=== PATIENT | female | born 1950 | race Caucasian/White ===

== ENCOUNTER 2019-09-27 09:00 | Inpatient (IN) | payer MEDICARE ==
--- NOTE | 2019-09-21 14:44 | HP ---
Amended report to enter cosigning physician on report. HISTORY AND PHYSICAL: DATE OF ADMISSION/SURGERY: 09/27/19 DATE OF OFFICE VISIT: 09/19/19 SURGEON: Dolores Burns MD* PROCEDURE: Right total hip arthroplasty. CHIEF COMPLAINT: Right hip pain. HISTORY OF PRESENT ILLNESS: Ms. Puente is a 69-year-old female with end-stage osteoarthritis of the right hip. She has failed conservative treatment and elected to proceed with a right total hip arthroplasty. PAST MEDICAL HISTORY: Hypertension. PAST SURGICAL HISTORY: Removal of hemangioma from her tongue, wisdom teeth extraction. CURRENT MEDICATIONS: 1. Triamterene/hydrochlorothiazide 37.5/25 mg half a tab daily. 2. Calcium with vitamin D. 3. Famotidine 20 mg a day. ALLERGIES: To PENICILLIN. FAMILY HISTORY: Coronary artery disease, stroke, Alzheimer's, and cancer. SOCIAL HISTORY: She is a 69-year-old female. She lives with her . She does not smoke or use drugs. Uses occasional alcohol. REVIEW OF SYSTEMS: A complete 14-point review of systems was reviewed with the patient. It was all negative or noncontributory. She denies history of DVT, PE , hepatitis, HIV, or anesthesia problems. PHYSICAL EXAMINATION GENERAL: She is well developed, well nourished, in no acute distress. VITAL SIGNS: She stands 63-1/2 inches tall, weighs 160 pounds. Her blood pressure is 116/62, her heart rate is 100. HEENT: Normocephalic, atraumatic. NECK: Supple. No palpable lymph nodes. PULMONARY: The lungs are clear to auscultation bilaterally. CARDIO: Regular rate and rhythm. Strong S1, S2. ABDOMEN: Soft, nontender, nondistended. NEUROLOGICAL: She is alert and oriented x3. MUSCULOSKELETAL: Right lower extremity: The skin is intact. There are no open wounds or abrasions. She walks with an antalgic-type gait. She has decreased internal and external rotation of the right hip. She is able to dorsiflex and plantarflex and has a 2+ dorsalis pedis pulse. ASSESSMENT AND PLAN: Ms. Puente is a 69-year-old female with end-stage osteoarthritis of the right hip. She has failed conservative treatment and elected to proceed with a right total hip arthroplasty. The surgery is scheduled for 09/27/[address] Burns discussed the risks and benefits of the surgery at today's visit and all of her questions were answered. She will follow up with Dr. Burns 2 weeks after the surgery. KIERA JARA [id number]/[facility] #: [id number] TELLY
[~2019-09-27 09:00] MED LIST: Acetaminophen TAB* 325 MG PO ONE; Buffered Lidocaine 1% SYRIN* 1 ML/SYRINGE INTRADERM ONE; Gabapentin CAP(*) 300 MG PO ONE; Lactated Ringers 1000 ML Bag* 1,000 ML IV SCH; Tranexamic Acid 1,000 MG in NS 0.9% 50 ML* (outpatient use) IV SCH; celeCOXIB CAP* 200 MG PO ONE
--- OUTSIDE RECORDS SUMMARY | 2019-09-27 13:47 | XMS REPORT | Continuity of Care Document ---
:1950 External Reference #:[id number] Author Name Dolores Burns M.D. (transmitted by agent of provider Polly Martinez) Address [address] [place] [address] Care Team Providers Name Role Phone Shayla Holt MD - Internal Care Team Information [facility] Alejandra Garcia MD - Internal Care Team Information [employer] [phone] Medicine Michael Gaitan MD - Orthopaedic Care Team Information [employer] [phone] Surgery Dolores Burns MD - Adult Care Team Information [employer] [phone] Reconstructive Orthopaedic Surgery Problems Active Problems Provider Date Localized, primary osteoarthritis of the pelvic Dolores Burns M.D. Onset: 04/2019 region and thigh Social History Type Date Description Comments Sex Unknown Tobacco Use Start: Unknown End: Former Cigarette Smoker cut back in 1977, Unknown quit 1999, smoked on and off ETOH Use Drinks 3 Alcoholic Beverages Per Week Tobacco Use Start: Unknown End: Patient is a former Unknown smoker Smoking Status Reviewed: 08/15/19 Patient is a former smoker Exercise Exercises regularly Type/Frequency Allergies, Adverse Reactions, Alerts Active Allergies Reaction Severity Comments Date Penicillins hives Moderate 05/22/2010 Medications Active Medications SIG Qnty Indications Ordering Provider Date Meloxicam take 1 tab by 14tabs M25.551 Shayla Holt, 01/26/2019 15mg Tablets mouth with food M.D. once a day Triamterene/Hydrochlo Take 1/2 Tablet 90tabs I10 Shayla Holt, 2015 rothiazide By Mouth Every M.D. 37.5-25mg Day Tablets Calcium + D 1 po bid Shayla Holt, 03/21/2011 M.DShonda [id number] Tablets Famotidine 1 by mouth daily Unknown 20mg Tablets Medications Administered in Office Medication SIG Qnty Indications Ordering Provider Date Depomedrol 40MG Dolores Burns M.D. 01/26/2019 Injection Immunizations CPT Code Status Date Vaccine Reaction Lot # [id number] Given 05/31/2019 Influenza Virus Vaccine, Quadrivalent, Split, Preservative Free 18355 Given 05/19/2018 Fluzone High Dose 87080 Given 05/19/2018 Fluzone High Dose 49028 Given 05/27/2017 Influenza Virus Vaccine, [id number] Quadrivalent, Split, Preservative Free 56935 Given 04/03/2016 Pneumonia Vaccine No allergies noted - no [id number] immediate side effects noted - patient tolerated well 37688 Given 03/30/2015 Pneumococcal Conjugate [id number] Vaccine 13 Valent For Intramuscular Use 80522 Given 05/20/2012 Zoster (Zostavax) 08752 Given 05/20/2012 Zoster (Zostavax) [id number] 04954 Given 03/25/2012 Tdap - [id number] Tetanus/Diptheria/Acellular Pertussis Vital Signs Date Vital Result Comment 08/15/2019 1:33pm Height 63.5 inches 5'3.50" Weight 161.00 lb Heart Rate 86 /min BP Systolic 118 mmHg BP Diastolic 66 mmHg Body Temperature 95.9 F Pain Level 4 BMI (Body Mass Index) 28.1 kg/m2 07/05/2019 1:19pm Height 63.5 inches 5'3.50" Weight 159.50 lb Heart Rate 65 /min BP Systolic 124 mmHg left arm BP Diastolic 78 mmHg left arm Body Temperature 97.7 F O2 % BldC Oximetry 99 % BMI (Body Mass Index) 27.8 kg/m2 Results Test Acquired Date Facility Test Result H/L Range Note Lipid Profile 06/29/2019 [facility] Triglycerides 54 mg/dL 1 (Trig/Chol/HDL) [address] [place] [address] [phone] Cholesterol 247 mg/dL 2 HDL Cholesterol 88.0 mg/dL 3 LDL Cholesterol 148 mg/dL 4 Comp Metabolic 06/29/2019 [facility] Sodium 140 mmol/L Normal 135-[address] [place], [place] [id number] [phone] Potassium 4.0 mmol/L Normal 3.5-5.0 Chloride 103 mmol/L Normal 101-111 Co2 Carbon Dioxide 30 mmol/L Normal 22-32 Anion Gap 7 mmol/L Normal 2-11 Glucose 88 mg/dL Normal 70-100 Blood Urea Nitrogen 13 mg/dL Normal 6-24 Creatinine 0.80 mg/dL Normal 0.51-0.95 BUN/Creatinine Ratio 16.3 Normal 8-20 Calcium 9.0 mg/dL Normal 8.6-10.3 Total Protein 6.6 g/dL Normal 6.4-8.9 Albumin 4.1 g/dL Normal 3.2-5.2 Globulin 2.5 g/dL Normal 2-4 Albumin/Globulin Ratio 1.6 Normal 1-3 Total Bilirubin 0.60 mg/dL Normal 0.2-1.0 Alkaline Phosphatase 61 U/L Normal 34-104 Alt 18 U/L Normal 7-52 Ast 20 U/L Normal 13-39 Egfr Non- 71.1 >60 Egfr 86.1 >60 5 1 Desirable: <150 Borderline High: 150-199 High: 200-499 Very High: >500 2 Desirable: <200 Borderline High: 200-239 High: >239 3 Low: <40 Desirable: 40-60 High: >60 4 Desirable: <100 Near Optimal: 100-129 Borderline High: 130-159 High: 160-189 Very High: >189 5 Because ethnic data is not always readily available, this report includes an eGFR for both -Americans and non- Americans. The National Kidney Disease Education Program (NKDEP) does not endorse the use of the MDRD equation for patients that are not between the ages of 18 and 70, are , have extremes of body size, muscle mass, or nutritional status, or are non- or non-. According to the National Kidney Foundation, irrespective of diagnosis, the stage of the disease is based on the level of kidney function: Stage Description GFR(mL/min/1.73 m(2)) 1 Kidney damage with normal or decreased GFR 90 2 Kidney damage with mild decrease in GFR 60-89 3 Moderate decrease in GFR 30-59 4 Severe decrease in GFR 15-29 5 Kidney failure <15 (or dialysis) Procedures Date Code Description Status 08/05/2019 [id number] Mammogram Completed 08/04/2018 [id number] Mammogram Completed 07/21/2017 [id number] Bone Mineral Density Test Completed 07/21/2017 [id number] Mammogram Completed 06/19/2016 [id number] Colonoscopy Completed 04/23/2016 [id number] Mammogram Completed 04/23/2015 [id number] Bone Mineral Density Test Completed 04/23/2015 [id number] Mammogram Completed 04/12/2014 [id number] Mammogram Completed 04/05/2013 [id number] Mammogram Completed 04/05/2013 [id number] Bone Mineral Density Test Completed 03/30/2012 [id number] Mammogram Completed 02/18/2011 [id number] Colonoscopy Completed 09/11/2010 [id number] Mammogram Completed 03/04/2010 [id number] Mammogram Completed 08/16/2009 [id number] Mammogram Completed 08/16/2009 [id number] Bone Mineral Density Test Completed 02/10/2006 [id number] Colonoscopy Completed 12/26/2005 [id number] Mammogram Completed Medical Devices Description No Information Available Encounters Description No Information Available Assessments Date Code Description Provider 08/15/2019 M25.551 Pain in right hip Dolores Burns M.D. 08/15/2019 M16.11 Unilateral primary osteoarthritis, right Dolores Burns M.D. hip 07/05/2019 Z00.00 Encounter for general adult medical Shayla Holt M.D. examination without abnormal findings 07/05/2019 I10 Essential (primary) hypertension Shayla Holt M.D. 07/05/2019 Z12.31 Encounter for screening mammogram for Shayla Holt M.D. malignant neoplasm of breast 07/05/2019 M16.11 Unilateral primary osteoarthritis, right Shayla Holt M.D. hip Plan of Treatment Future Appointment(s):01/06/2020 1:00 pm - Shayla Holt M.D. at [facility] Internal Medicine - [facility]08/15/2019 - Dolores Burns M.D.M25.551 Pain in right hipFollow up:Follow up: 7-10 days before rqvddsvN79.11 Unilateral primary osteoarthritis, right hip Functional Status Description No Information Available Mental Status Description No Information Available Referrals Description No Information Available
--- OUTSIDE RECORDS SUMMARY | 2019-09-27 13:47 | XMS REPORT | Continuity of Care Document ---
:1950 External Reference #:[id number] Author Name Dolores Burns M.D. (transmitted by agent of provider Bella Zuniga) Address [address] [place] [address] Care Team Providers Name Role Phone Shayla Holt MD - Internal Care Team Information [facility] Alejandra Garcia MD - Internal Care Team Information [facility] Michael Gaitan MD - Orthopaedic Care Team Information [facility] Surgery Dolores Burns MD - Adult Care Team Information [facility] [phone] Reconstructive Orthopaedic Surgery Problems Active Problems Provider [...] a former Unknown smoker Smoking Status Reviewed: 09/19/19 Patient is a former smoker Exercise Exercises [...] Calcium + D 1 po bid Shayla Cotton, 03/21/2011 M.DShonda [id number] Tablets Famotidine 1 by mouth daily Unknown 20mg Tablets Medications Administered in Office Medication SIG Qnty Indications Ordering Provider Date Depomedrol 40MG Dolores Burns M.D. 01/26/2019 Injection Immunizations CPT Code Status Date Vaccine Reaction Lot # [id number] Given 05/31/2019 Influenza Virus Vaccine, Quadrivalent, Split, Preservative Free 42496 Given 05/19/2018 Fluzone High Dose 30042 Given 05/19/2018 Fluzone High Dose 25597 Given 05/27/2017 Influenza Virus Vaccine, [id number] Quadrivalent, Split, Preservative Free 74084 Given 04/03/2016 Pneumonia Vaccine No allergies noted - no [id number] immediate side effects noted - patient tolerated well 73543 Given 03/30/2015 Pneumococcal Conjugate [id number] Vaccine 13 Valent For Intramuscular Use 46166 Given 05/20/2012 Zoster (Zostavax) 80377 Given 05/20/2012 Zoster (Zostavax) [id number] 88053 Given 03/25/2012 Tdap - [id number] Tetanus/Diptheria/Acellular Pertussis Vital Signs Date Vital Result Comment 09/19/2019 1:02pm Height 63.5 inches 5'3.50" Weight 160.00 lb Heart Rate 100 /min BP Systolic 116 mmHg BP Diastolic 62 mmHg Body Temperature 97.0 F Pain Level 5 BMI (Body Mass Index) 27.9 kg/m2 09/02/2019 3:49pm Height 63.5 inches 5'3.50" Weight 160.00 lb Heart Rate 66 /min BP Systolic 101 mmHg BP Diastolic 73 mmHg O2 % BldC Oximetry 98 % BMI (Body Mass Index) 27.9 kg/m2 Results Test Acquired Date Facility Test Result H/L Range Note Lipid Profile 06/29/2019 [facility] Triglycerides 54 mg/dL 1 (Trig/Chol/HDL) [address] [place], [place] [id number] [phone] Cholesterol 247 mg/dL 2 HDL Cholesterol 88.0 mg/dL 3 LDL Cholesterol 148 mg/dL 4 Comp Metabolic 06/29/2019 [facility] Sodium 140 mmol/L Normal 135-[address] [place] [address] [phone] Potassium 4.0 mmol/L Normal 3.5-5.0 Chloride 103 [...] (or dialysis) Procedures Date Code Description Status 09/02/2019 63881 EKG Tracing & Interpretation Completed 08/05/2019 [id number] Mammogram Completed 08/04/2018 [id number] Mammogram Completed 07/21/2017 [id number] Bone Mineral Density Test Completed 07/21/2017 [id number] Mammogram Completed 06/19/2016 [id number] Colonoscopy Completed 04/23/2016 [id number] Mammogram Completed 04/23/2015 [id number] Bone Mineral Density Test Completed 04/23/2015 [id number] Mammogram Completed 04/12/2014 [id number] Mammogram Completed 04/05/2013 [id number] Mammogram Completed 04/05/2013 [id number] Bone Mineral Density Test Completed 03/30/2012 [id number] Mammogram Completed 02/18/2011 [id number] Colonoscopy Completed 09/11/2010 [id number] Mammogram Completed 03/04/2010 [id number] Mammogram Completed 08/16/2009 [id number] Mammogram Completed 08/16/2009 [id number] Bone Mineral Density Test Completed 02/10/2006 [id number] Colonoscopy Completed 12/26/2005 [id number] Mammogram Completed Medical Devices Description No Information Available Encounters Type Date Location Provider Dx Diagnosis Office Visit 09/02/2019 [employer] [facility] Internal Shayla Z01.818 Encounter for other 3:40p Medicine - Lex[place] Holt M.D. preprocedural examination I10 Essential (primary) hypertension M25.551 Pain in right hip Office Visit 08/15/2019 1:45p [facility] Dolores Burns, M25.551 Pain in right at [place] M.D. hip M16.11 Unilateral primary osteoarthritis, right hip Assessments Date Code Description Provider 09/19/2019 M25.551 Pain in right hip Dolores Burns M.D. 09/19/2019 M16.11 Unilateral primary osteoarthritis, right Dolores Burns M.D. hip 09/02/2019 Z01.818 Encounter for other preprocedural Shayla Holt M.D. examination 09/02/2019 I10 Essential (primary) hypertension Shayla Holt M.D. 09/02/2019 M25.551 Pain in right hip Shayla Holt M.D. 08/15/2019 M25.551 Pain in right hip Dolores [...] Holt M.D. hip Plan of Treatment Future Appointment(s):10/11/2019 8:00 am - KIERA Das at [facility] at Gozcaz4809/27/2019 10:30 am - Erwin Bustos PA-C at [facility] at Kpmzwd7409/27/2019 10:30 am - KIERA Das at [facility] at Bqsjcz9209/27/2019 10:30 am - Dolores Burns M.D. at [facility] at Ukrwff4401/06/2020 1:00 pm - Shayla Holt M.D. at [facility] Internal Medicine - [facility]09/19/2019 - Dolores Burns M.D.M25.551 Pain in right hipFollow up:Follow up: 2 weeks after ddyjhjoD74.11 Unilateral primary osteoarthritis, right hip Functional Status Description No Information Available Mental Status Description No Information Available Referrals Description No Information Available
--- OUTSIDE RECORDS SUMMARY | 2019-09-27 13:47 | XMS REPORT | Continuity of Care Document ---
:1950 External Reference #:[id number] Author Name Shayla Holt M.D. (transmitted by agent of provider Luli Alvarado ) Address [address], [place] [address] Care Team Providers Name Role Phone Shayla Holt MD - Internal Care Team Information [facility] Alejandra Garcia MD - Internal Care Team Information [facility] Michael Gaitan MD - Orthopaedic Care Team Information [employer] [phone] Surgery Dolores Burns MD - Adult Care Team Information [employer] [phone] Reconstructive Orthopaedic Surgery Problems Active Problems Provider [...] a former Unknown smoker Smoking Status Reviewed: 09/02/19 Patient is a former smoker Exercise Exercises [...] 1 po bid Shayla Holt, 03/21/2011 M.DShonda [id number] Tablets Famotidine 1 by mouth daily Unknown 20mg Tablets Medications Administered in Office Medication SIG Qnty Indications Ordering Provider Date Depomedrol 40MG Dolores Burns M.D. 01/26/2019 Injection Immunizations CPT Code Status Date Vaccine Reaction Lot # [id number] Given 05/31/2019 Influenza Virus Vaccine, Quadrivalent, Split, Preservative Free 59303 Given 05/19/2018 Fluzone High Dose 82627 Given 05/19/2018 Fluzone High Dose 23961 Given 05/27/2017 Influenza Virus Vaccine, [id number] Quadrivalent, Split, Preservative Free 60242 Given 04/03/2016 Pneumonia Vaccine No allergies noted - no [id number] immediate side effects noted - patient tolerated well 72482 Given 03/30/2015 Pneumococcal Conjugate [id number] Vaccine 13 Valent For Intramuscular Use 27443 Given 05/20/2012 Zoster (Zostavax) 45254 Given 05/20/2012 Zoster (Zostavax) [id number] 66955 Given 03/25/2012 Tdap - [id number] Tetanus/Diptheria/Acellular Pertussis Vital Signs Date Vital Result Comment 09/02/2019 3:49pm Height 63.5 inches 5'3.50" Weight 160.00 lb Heart Rate 66 /min BP Systolic 101 mmHg BP Diastolic 73 mmHg O2 % BldC Oximetry 98 % BMI (Body Mass Index) 27.9 kg/m2 08/15/2019 1:33pm Height 63.5 inches 5'3.50" Weight 161.00 lb Heart Rate 86 /min BP Systolic 118 mmHg BP Diastolic 66 mmHg Body Temperature 95.9 F Pain Level 4 BMI (Body Mass Index) 28.1 kg/m2 Results Test Acquired Date Facility Test Result H/L Range Note Order 09/02/2019 [employer] In-House EKG <pending> Lipid Profile 06/29/2019 [facility] Triglycerides 54 mg/dL 1 (Trig/Chol/HDL) [address] [place] [address] [phone] Cholesterol 247 mg/dL 2 HDL Cholesterol 88.0 mg/dL 3 LDL Cholesterol 148 mg/dL 4 Comp Metabolic 06/29/2019 [facility] Sodium 140 mmol/L Normal 135-145 Panel [address] [place] [address] [phone] Potassium 4.0 mmol/L Normal 3.5-5.0 Chloride 103 [...] dialysis) Procedures Date Code Description Status 09/02/2019 53503 EKG Tracing & Interpretation Completed 08/05/2019 [id number] Mammogram Completed 08/04/2018 [id number] Mammogram Completed 07/21/2017 [id number] Bone Mineral Density Test Completed 07/21/2017 [id number] Mammogram Completed 06/19/2016 [id number] Colonoscopy Completed 04/23/2016 [id number] Mammogram Completed 04/23/2015 [id number] Bone Mineral Density Test Completed 04/23/2015 [id number] Mammogram Completed 04/12/2014 [id number] Mammogram Completed 04/05/2013 [id number] Mammogram Completed 04/05/2013 [id number] Bone Mineral Density Test Completed 03/30/2012 [id number] Mammogram Completed 02/18/2011 [id number] Colonoscopy Completed 09/11/2010 [id number] Mammogram Completed 03/04/2010 [id number] Mammogram Completed 08/16/2009 [id number] Mammogram Completed 08/16/2009 [id number] Bone Mineral Density Test Completed 02/10/2006 [id number] Colonoscopy Completed 12/26/2005 [id number] Mammogram Completed Medical Devices Description No Information Available Encounters Type Date Location Provider Dx Diagnosis Office Visit 08/15/2019 [facility] Dolores Burns, M25.551 Pain in right hip 1:45p at [facility] M16.11 Unilateral primary osteoarthritis, right hip Assessments Date Code Description Provider 09/02/2019 Z01.818 Encounter for other preprocedural Shayla Holt M.D. examination 09/02/2019 I10 Essential (primary) hypertension Shayla Holt M.D. 08/15/2019 M25.551 Pain in [...] Holt M.D. hip Plan of Treatment Future Appointment(s):09/19/2019 1:00 pm - Dolores Burns M.D. at [facility] at Xnuuvj7509/27/2019 10:30 am - Dolores Burns M.D. at [facility] at Mcvohu6301/06/2020 1:00 pm - Shayla Holt M.D. at [facility] Internal Medicine - [facility]09/02/2019 - Shayla Holt M.D.Z01.818 Encounter for other preprocedural examinationComments:Stop meloxicam ibuprofen, Motrin, Advil, Aleve, naproxen 1 week prior to surgery.Stop aspirin 10 days prior to surgeryNo herbal tea/supplement for 1 weeks prior to surgery No medications needed on themorning of [id number] Essential (primary) hypertension Functional Status Description No Information Available Mental Status Description No Information Available Referrals Description No Information Available
[2019-09-27] MEDS ORDERED: Gabapentin CAP(*) 300 MG ONE (13:58)
[2019-09-27] MEDS ORDERED: Acetaminophen TAB* 325 MG ONE (13:58)
[2019-09-27] MEDS ORDERED: Clindamycin 900 MG/D5W BAG(*) 900 MG/50 ML BAG IVPB ONE (13:58)
[2019-09-27] MEDS ORDERED: celeCOXIB CAP* 200 MG ONE (13:58)
[2019-09-27] MEDS ORDERED: Buffered Lidocaine 1% SYRIN* 1 ML/SYRINGE INTRADERM ONE ×2 (13:58→15:25)
[2019-09-27] MEDS ORDERED: Propofol* 100 ML ONE (14:57)
[2019-09-27] MEDS ORDERED: Midazolam* 1 MG/ML 2 ML VIAL (2 MG) ONE (14:58)
[2019-09-27] MEDS ORDERED: fentaNYL* 50 MCG/ML 2 ML VIAL (100 MCG VIAL) ONE (14:58)
[2019-09-27] MEDS ORDERED: Naloxone* 0.4 MG/ML 1 ML VIAL IV PRN (15:21)
[2019-09-27] MEDS ORDERED: Famotidine IV* 10 MG/ML 2 ML (20 mg) IV SLOW PU ONE (15:24)
[2019-09-27] MEDS ORDERED: Famotidine IV* 10 MG/ML 2 ML (20 mg) ONE (15:26)
[2019-09-27] MEDS ORDERED: Bupivacaine 0.5% SDV PF* 30ML VIAL ONE (15:58)
[2019-09-27] MEDS ORDERED: Dexamethasone IV* 4 MG/ML 1 ML (4 MG) ONE (16:43)
[2019-09-27] MEDS ORDERED: Ondansetron INJ* 2 MG/ML VIAL ONE (16:43)
[2019-09-27] MEDS ORDERED: Morphine INJ* 2 MG/ML 1 ML SYRINGE (TWO MG - NEW SYRINGE VERSION) IV PRN (17:34)
[2019-09-27] MEDS ORDERED: Ondansetron INJ* 2 MG/ML VIAL IV PRN (17:34)
[2019-09-27] MEDS ORDERED: oxyCODONE/Acetamin 5/325 MG* TAB PO PRN (17:34)
[2019-09-27] MEDS ORDERED: Ondansetron ODT TAB* 4 MG PO PRN (17:34)
[2019-09-27] MEDS ORDERED: Cyclobenzaprine TAB* 10 MG PO PRN (17:34)
[2019-09-27] MEDS ORDERED: diPHENhydraMINE PO* 25 MG PO PRN (17:34)
[2019-09-27] MEDS ORDERED: diPHENhydraMINE IV* 50 MG/ML 1 ml VIAL (BENADRYL) IV PRN (17:34)
[2019-09-27] MEDS ORDERED: Magnesium Hydroxide LIQ* 30 ML UDC PO PRN (17:34)
[2019-09-27] MEDS ORDERED: HYDROmorphone INJ1* 1 MG/ML SYRINGE ONE (19:28)
--- NOTE | 2019-09-27 19:29 | OP ---
Operative Report - Blank - Operative Report Date of Operation: 09/27/19 Note: JAISON BAHENA 1950 Date Of Surgery: 09/27/19 Dolores Bunrs MD Cabinet Mounter: Shirlene QURESHI did help throughout the procedure with preparation of the hip, wound retraction, manipulation of the hip, and wound closure. Anesthesiologist: Dr. Lugo Anesthesia Type: Spinal Preoperative Diagnosis: Right severe degenerative osteoarthritis of the hip Postoperative Diagnosis: As above Procedure Performed: Right Total Hip Arthroplasty Complications: None Specimen: Femoral head and acetabular reamings sent to pathology. Hardware used: This is uncemented [employer] total hip arthroplasty hardware for the femur a size 5 accolade II with 127 neck angle femoral component, for the acetabulum a size 48D trident II tritanium cluster hole shell, a 15 mm screw, for the insert a size 32 D trident II insert, and for the femoral head a size 32 +0 ceramic biolox V40 femoral head. Brief history/Indication: JAISON BAHENA was known in clinic and had a history of severe right hip pain. She failed conservative treatment with anti- inflammatories, pain pills, intra-articular injections and physical therapy. She elected to undergo right total hip arthroplasty due to continued pain and decreased quality of life. Radiographs showed severe end stage osteoarthritis of the hip with bone on bone contact. Informed consent was obtained from the patient. She understood the risks of surgery included but were not limited to: bleeding, infection, damage to nearby structures, intraoperative fracture, nerve palsy, failure of the hardware, early loosening, stiffness or loss of motion, dislocation, leg length discrepancy, anesthesia complications, stroke, heart attack, blood clot and . She wished to proceed. Intra-Operative findings: Intraoperatively the patient was noted to have severe loss of cartilage of the acetabulum and femoral head. Osteopenia was noted throughout the case. Description of the Procedure: JAISON BAHENA was identified in the preanesthesia unit. Her right hip was marked as the correct operative side. Informed consent was signed and placed in the chart. The patient was taken to the operating room and placed under anesthesia without complication. A grubbs catheter was placed. The patient was placed on the peg board with all bony prominences well padded. The right lower extremity was prepped and draped in the usual sterile fashion. Preoperative time -out was made to correctly identify the patient, side and site. Appropriate intraoperative antibiotics were given within one hour of incision. A standard posterior incision was made and carried sharply down to the lateral fascia. A new 10 blade was used to make an incision in the fascia in line with the skin incision. A charnley retractor was placed. The piriformis and conjoined tendons were identified and elevated off the posterolateral femur using electrocautery. These were tagged with number 5 Ethibond. Next electrocautery was used to make a posterolateral capsular flap and this was tagged with number 5 Ethibonds. The hip was carefully dislocated. Lesser trochanter to the center of the femoral head was measured at 65 mm. The oscillating saw was used to make the femoral neck cut. The femoral head was carefully removed. The femur was retracted anteriorly and the acetabular retractors were placed. Long-handled knife was used to sharply remove any remaining labrum from the acetabular rim. The acetabulum was sequentially reamed up to a size 48. A bleeding subchondral bone bed was obtained. A trial liner was placed and had excellent fit and stability. A 48D cup with one screw was placed and had excellent stability with appropriate anteversion and abduction angle. A size 32D liner was impacted into the acetabular shell. The liner was checked for stability and was stable. Next attention was turned to preparation of the femoral canal. A canal finder was used to enter the proximal femur. The femoral canal was sequentially broached up to a size 5 femoral broach trial. A trial neck and 32+0 trial femoral head was chosen. Lesser trochanter to center of the femoral head measurement was satisfactory. The hip was reduced and taken through a range of motion. The hip was stable in all positions with good soft tissue tension and appropriate leg lengths. The hip was dislocated and all trials were removed. The final implant chosen was a accolade II size 5. This stem was impacted into the femoral canal without difficulty. The stem was stable with appropriate anteversion. The femoral head chosen was a 32 + 0 ceramic head. The head was impacted onto the femoral neck without difficulty. The final lesser trochanter to center of the femoral head measurement was satisfactory. The hip was reduced and taken through a range of motion. The hip was stable in all positions with good soft tissue tension and appropriate leg lengths. The hip was copiously irrigated with sterile saline. The previously tagged capsule and tendons were repaired to the posterolateral femur through two trochanteric drill holes. The lateral fascia layer was closed using number 1 vicryls. The rest of the incision was closed in a layered fashion using 0 and 2-0 vicryls. The skin was closed using 3-0 monocryl suture and Dermabond. Sterile adaptic, 4x4s and paper tape was used to cover the incision. The patients anesthesia was reversed without difficulty. She was taken to the PACU in stable condition. Intended weight-bearing will be as tolerated with posterior hip precautions.
[2019-09-27] MEDS: HYDROmorphone INJ1* 1 MG/ML SYRINGE IV PRN ×3 (19:49→20:20)
[2019-09-27] MEDS ORDERED: oxyCODONE TAB* 5 MG TAB ONE (20:17)
[2019-09-27] MEDS: oxyCODONE TAB* 5 MG TAB PO PRN (20:18)
[2019-09-27] MEDS: Docusate CAP* 100 MG PO SCH (21:39)
[2019-09-27] MEDS: Magnesium Hydroxide LIQ* 30 ML UDC PO SCH (21:40)
[2019-09-27] MEDS: Lactated Ringers 1000 ML Bag* 1,000 ML IV SCH (21:41)
[2019-09-27] MEDS: oxyCODONE/Acetamin 5/325 MG* TAB PO PRN (22:02)
--- NOTE | 2019-09-28 00:16 | CONS ---
CC: Dr. Burns * CONSULTATION REPORT: DATE OF CONSULT: 09/27/19 REQUESTING PHYSICIAN: Dr. Burns. MY ATTENDING PHYSICIAN WHILE IN THE HOSPITAL: Dr. Pierce (report dictated by Db Collins NP). REASON FOR MEDICAL CONSULTATION: Medical management of comorbid medical problems. HISTORY OF PRESENT ILLNESS: Ms. Puente is a 69-year-old female patient that presented to the care of Dr. Burns in the outpatient setting with complaints of right hip pain, who was ultimately found to have pretty significant osteoarthritis and it was felt that she would benefit from a total hip replacement. She underwent a right total hip arthroplasty today. She was evaluated in the PACU. She has a history of hypertension, and because of this, we were asked to evaluate. She says at the current moment she is feeling well. She is concerned that she is having no feeling in her lower extremities from the spinal. I reassured her that this will come back in time. She is getting some movement. She says her pain is well controlled possibly a 5/10 to the hip. She said that she feels somewhat tired but denies any lightheadedness or dizziness. Denies chest pain or shortness of breath. Denies any abdominal pain or nausea. There was concern though with her history and we were asked to evaluate in consult. PAST MEDICAL HISTORY: Significant for hypertension. PAST SURGICAL HISTORY: 1. She has had removal of a hemangioma from her tongue. 2. [facility] teeth extraction. 3. Right total hip arthroplasty done today. HOME MEDICATIONS: Include: 1. Calcium carbonate with vitamin D 1 capsule daily. 2. Dyazide 1 tablet p.o. daily. 3. Mobic 15 mg p.o. in the morning. ALLERGIES TO MEDICATIONS: Include PENICILLIN. FAMILY HISTORY: She states that her mother had a CVA and dementia. Father had a history of heart disease. SOCIAL HISTORY: She does not smoke. She does not drink. Surrogate decision maker is her . REVIEW OF SYSTEMS: There is no documented fever. She denied any significant weight change. There is no double vision. There is no ear discharge. No rhinorrhea. No sore throat. No thyroid enlargement. Denied having any chest pain. Denies having any loss of consciousness. No pruritus. No skin ulcerations. No abdominal pain, no nausea, no vomiting. Review of 14 systems completed, all others negative. PHYSICAL EXAM: Vital Signs: Blood pressure 121/74, pulse 60, respirations 18, O2 sat 95%, temperature 97.2. General: At this time, Ms. Puente is a 69-year- old female patient. She is sitting in the PACU bed. She does not appear to be in any acute distress. HEENT: Head: Atraumatic, normocephalic. Eyes: EOMs intact. Sclerae anicteric and not pale. Neck was supple. Throat: Oral mucosa appears to be moist. No oropharyngeal erythema. Heart sounds S1, S2. Regular rate and rhythm. No murmurs, rubs, or gallops. Lungs: Clear to auscultation bilaterally. No wheezes, rales, or rhonchi. Abdomen: Soft, flat, nontender. Bowel sounds present. Extremities: She has 5/5 strength in the upper extremities. She does not have sensation to the lower extremities. She is able to wiggle her toes only at this point. She did have a spinal. Pulses, distal CSM checks are intact bilaterally to lower extremities. Neurologically, she is awake, alert, oriented x3. Speech clear. Tongue midline. Board Layer are equal. No gross focal deficits. Again, she had a spinal and she cannot move the lower extremities at this point yet but she is slowly regaining sensation and movement. Skin: Grossly intact. She has an incision to the right hip, which is clean, dry, and intact. DIAGNOSTIC STUDIES/LAB DATA: Preoperative labs: WBC 5.9, RBC 4.17, hemoglobin 12.9, hematocrit 38, platelet count 262. The INR was 0.94, PTT 36.1. Sodium 142, potassium 3.6, chloride 106, bicarb 29, BUN 22, creatinine 0.92. Urine preoperatively showed trace ketones, positive urobilinogen. She did have a preop chest x-ray, impression: No active cardiopulmonary disease. She had a preoperative EKG, which showed normal sinus rhythm, rate of 84, no ST elevations or T-wave inversions were noted. Old medical records reviewed. ASSESSMENT AND PLAN: Ms. Puente is a 69-year-old female patient coming into the orthopedic services today for an elective right total hip. We were asked to evaluate in consult given her medical history. Recommendations at this point are: 1. Right total hip replacement. Defer management to Dr. Burns and her team. 2. Hypertension. In the setting of recent spinal and blood pressure has been in the one teens here, I would hold her Dyazide and restart when we are able. 3. DVT prophylaxis: Defer to the primary team. 4. Fluids, electrolytes, nutrition: I would recommend a regular diet. 5. Code status: Full code. TIME SPENT: Time spent on the consult was 60 minutes, Greater than half the time was spent [id number] with the patient obtaining my history and physical, other half time was spent going over the plan of care with the patient and implementing plan of care. I discussed the plan of care with my attending Dr. Pierce; he is in agreement. At this point, we will certainly continue to follow the patient but we will sign off. We are available for any further questions. I will sign the patient out to my team members tomorrow so that they are aware and we will follow her from a distance. DB COLLINS NP [id number]/CPS #: [id number] TELLY
[2019-09-28] MEDS: Acetaminophen TAB* 325 MG PO SCH ×3 (00:25→16:27)
[2019-09-28] MEDS: Clindamycin 600 MG/D5W BAG(*) 600 MG/50 ML BAG IV SCH ×4 (01:01→16:31)
[2019-09-28] MEDS: oxyCODONE TAB* 5 MG TAB PO PRN ×2 (01:07→06:29)
[2019-09-28] MEDS: oxyCODONE/Acetamin 5/325 MG* TAB PO PRN (03:26)
[2019-09-28] MEDS ORDERED: Lactated Ringers 1000 ML Bag* 1,000 ML IV SCH (06:00)
[2019-09-28 07:20] LABS: Hematocrit 33 % (35-47); Hemoglobin 11.1 g/dL (12.0-16.0); Mean Platelet Volume 8.3 fL (7.4-10.4); Platelet Count 210 10^3/uL (150-450)
[2019-09-28 07:34] LABS: BUN/Creatinine Ratio 20.3 (8-20); Calcium 8.4 mg/dL (8.6-10.3); EGFR African American 94.2 (>60); EGFR Non-African American 77.8 (>60); Potassium 4.4 mmol/L (3.5-5.0)
[2019-09-28] MEDS: Lactated Ringers 1000 ML Bag* 1,000 ML IV SCH (08:03)
[2019-09-28] MEDS: Docusate CAP* 100 MG PO SCH (08:57)
[2019-09-28] MEDS ORDERED: Vitamin THERAPEUTIC TAB PO SCH (09:00)
[2019-09-28] MEDS ORDERED: Apixaban* 2.5 MG TAB PO SCH (09:00)
[2019-09-28] MEDS: Magnesium Hydroxide LIQ* 30 ML UDC PO SCH (09:21)
[2019-09-28] MEDS ORDERED: traMADol TAB* 50 MG PO PRN (12:35)
--- NOTE | 2019-09-28 13:18 | PN ---
Progress Note - Progress Note Date of Service: 09/28/19 SOAP: Subjective: []Patient seen and examined at bedside. She feels well and desires DC home today. Denies CP, SOB, dizziness or nausea. Requests tylenol and tramadol for pain control. Objective: []Gen: NAD RLE: Right hip dressing changed, incision CDI, thigh soft, DF/PF intact, DP2+, sensation intact to light touch distally Calves supple and nontender without erythema, edema or palpable cords Assessment: []POD 1 sp RTH Plan: []WBAT PT/OT Posterior hip precautions eliquis 2.5 mg po BID x 30 days post op Stop oxy/ percocet. use tramadol and tylenol for pain. DC home with VNS Vital Signs Temp 97.5 F 09/28/19 11:00 Pulse 71 09/28/19 11:00 Resp 18 09/28/19 12:50 BP 110/60 09/28/19 11:00 Pulse Ox 97 09/28/19 11:00 Intake & Output 09/27/19 09/28/19 09/28/19 18:59 06:59 18:59 Intake Total 3350 460 2091 Output Total 750 1400 Balance 2600 -940 2091 Weight 161 lb 8 oz Intake: IV Fluids 3350 1263 LR 3200 1263 NS 100ML, Clindamycin 150 600MG IVPB 108 LR 108 Oral 460 720 Output: Cadet 650 1400 Residual 100 Cadet 16 Fr 100 Other: Estimated Void Small Estimated Blood Loss 200 Comment # Voids 1 Laboratory Last Values Hgb 11.1 g/dL (12.0-16.0) L 09/28/19 06:32 Hct 33 % (35-47) L 09/28/19 06:32 Plt Count 210 10^3/uL (150-450) 09/28/19 06:32 MPV 8.3 fL (7.4-10.4) 09/28/19 06:32 Sodium 139 mmol/L (135-145) 09/28/19 06:32 Potassium 4.4 mmol/L (3.5-5.0) 09/28/19 06:32 Chloride 105 mmol/L (101-111) 09/28/19 06:32 Carbon Dioxide 28 mmol/L (22-32) 09/28/19 06:32 Anion Gap 6 mmol/L (2-11) 09/28/19 06:32 BUN 15 mg/dL (6-24) 09/28/19 06:32 Creatinine 0.74 mg/dL (0.51-0.95) 09/28/19 06:32 Est GFR ( Amer) 94.2 (>60) 09/28/19 06:32 Est GFR (Non-Af Amer) 77.8 (>60) 09/28/19 06:32 BUN/Creatinine Ratio 20.3 (8-20) H 09/28/19 06:32 Glucose 135 mg/dL (70-100) H 09/28/19 06:32 Calcium 8.4 mg/dL (8.6-10.3) L 09/28/19 06:32
--- NOTE | 2019-09-28 13:27 | DS ---
Orthopedic Discharge Summary - Discharge Summary Date of Admission:09/27/19 Date of Discharge: 09/28/19 Date of Surgery: 09/27/19 Attending Orthopedic Provider: Dr Burns Pre-operative Diagnosis: Right hip osteoarthritis Operative Procedure: right total hip replacement Disposition of Patient: home Home care vs Outpatient services: vns Condition of Patient: stable Pain medication RX at discharge: tramadol 50 mg 1-2 q 6 hr mdd 6. DVT prophylaxis RX at discharge: eliquis 2.5 mg po bid x 30 days post op History: JAISON BAHENA is a 69 year old F with years of increasingly severe right hip pain. Patient has failed conservative management and has elected to undergo a right total hip replacement Hospital Course: JAISON was admitted to [facility] on 09/27/19. Patient underwent a right total hip replacement without complication followed by a brief recovery in PACU and transfer to the Short Stay Surgical Unit in stable condition. Our hospitalist service, physical therapy and occupational therapy also participated in this patients care. Post-op day 1: patient was alert and in no acute distress. Dressing was clean, dry and intact. Operative extremity dorsiflexion and plantarflexion intact, sensation intact to light touch distally, DP2+. Prior to discharge: dressing was changed, incision was clean, dry and intact. Patient was deemed to be medically and orthopedically stable for discharge. Physical therapy goals were met. Home Medications Medication Instructions Recorded Confirmed Type Calcium Carbonate/Vitamin D3 1 cap PO QPM 09/19/19 09/27/19 History Calcium 600+D Softgel Acetaminophen TAB* [Tylenol TAB*] 975 mg PO Q8H tab 09/28/19 Rx Apixaban* [Eliquis*] 2.5 mg PO BID #60 tab 09/28/19 Rx Docusate CAP* [Colace Cap*] 100 mg PO BID PRN #60 cap 09/28/19 Rx Triamterene/HCTZ 37.5-25 MG* 1 tab PO QAM #0 09/28/19 09/27/19 Rx [Dyazide CAP*] traMADol TAB* [Ultram*] 50 mg PO Q6HR PRN #30 tab MDD 6 09/28/19 Rx Discharge Instructions following Orthopedic Surgery: Activity: * Weight Bearing as tolerated * Continue physical therapy and occupational therapy exercises as shown * you have elected to have home physical therapy, continue therapy exercises at home. Hip replacements: Continue Hip Precautions- do not cross legs or bend greater than 90 degrees/squat Wound care: * OK to shower on post-op day 3, no bathing, swimming, or submerging wound. * Use gentle soap, pat dry. Cover with gauze, ROSENDO wrap or tape. * you elected to have a visiting home nurse, they will perform wound checks. Call Orthopedic office for: * Increased drainage * Redness * Increased pain * Fever Go to ER with shortness of breath or chest pain. Diet: * Regular diet * Increase fluids and fiber to prevent constipation. * Continue to use stool softeners, call office if no bowel motion within 48 hours. Medications See Home Medication List in your packet for medications that you should take after discharge. DVT Prophylaxis: Eliquis Dosin.5 mg, 1 tab every 12 hours x 30 days. increases bleeding tendency Pain Control: Tramadol 50 mg tabs: take 1 tab for moderate pain and 2 tabs for every pain every 6 hours as needed. Max 6 per day. Hold for sedation, wean off as soon as pain allows. Antibiotics are required prior to any dental work. FOLLOW UP: Follow up with Dr. Batres] Within [14] days, call for appointment Please call our office with any questions or concerns ([phone]) [facility] [place]
[2019-09-28 15:55] VITALS: BP 118/68
[2019-09-28] MEDS ORDERED: Scopolamine 1.5 mg* PATCH TRANSDERM ONE (16:00)
[2019-10-01] MEDS ORDERED: Scopolamine PATCH Remove* 1 NOTE MISC PATCH OFF ONE (16:00)
== END 2019-09-28 18:05 | disposition home health service (06) | DRG 470 ==
LOC: AA 13:43 → SSU 21:12
PROVIDERS: ADMIT Orthopaedic Surgery Adult Reconstructive Orthopaedic Surgery; ATTEND Orthopaedic Surgery Adult Reconstructive Orthopaedic Surgery
PROC: 0SR904A Replacement of Right Hip Joint with Ceramic on Polyethylene Synthetic Substitute, Uncemented, Open Approach (ICD-10-PCS; principal; 2019-09-27 16:30)
DX: M16.11 Unilateral primary osteoarthritis, right hip (principal); I10 Essential (primary) hypertension; M85.88 Other specified disorders of bone density and structure, other site; Z88.0 Allergy status to penicillin; Z79.899 Other long term (current) drug therapy
CPT/HCPCS: 36415; 72170; 80048; 85014; 85018; 85049; 88304; 88311; A9270-GY; C1713; C1776; J1100; J1170; J2250; J2405; J2704; J3010; J3490